=== PATIENT | female | born 1965 | race Hispanic/Latino ===

== ENCOUNTER 2018-09-11 09:06 | Emergency (ER) | payer OTHER ==
[2018-09-11] MEDS ORDERED: HYDROCODONE/APAP 7.5/325 MG TAB ONE (10:40)
--- NOTE | 2018-09-11 11:11 | ER ---
Nurse's Notes [facility] Name: Merary Richards Age: 52 yrs Sex: Female : 1965 Arrival Date: 09/11/2018 Time: 09:10 Bed 16 Private MD: Diagnosis: Pain in right shoulder Presentation: 09/11 09:24 Presenting complaint: Patient states: R shoulder pain that began yesterday. No known ss injury. ROM to affected arm is limited. Transition of care: patient was not received from another setting of care. Onset of symptoms was September 10, 2018. Risk Assessment: Do you want to hurt yourself or someone else? Patient reports no desire to harm self or others. Initial Sepsis Screen: Does the patient meet any 2 criteria? No. Patient's initial sepsis screen is negative. Does the patient have a suspected source of infection? No. Patient's initial sepsis screen is negative. Care prior to arrival: None. 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 - Social history:: Smoking status: Patient/guardian denies using tobacco. - Ebola Screening: : Patient denies exposure to infectious person Patient denies travel to an Ebola-affected area in the 21 days before illness onset. Screenin:12 Abuse screen: Denies threats or abuse. Nutritional screening: No deficits noted. rb1 Tuberculosis screening: No symptoms or risk factors identified. Fall Risk None identified. Assessment: 10:12 General: Appears uncomfortable, Behavior is calm, cooperative. Pain: Complains of pain rb1 in right shoulder Pain currently is 10 out of 10 on a pain scale. Pain began 1 day ago. Neuro: Level of Consciousness is awake, alert, obeys commands, Oriented to person, place, time, situation. Cardiovascular: Capillary refill < 3 seconds is brisk in bilateral fingers. Respiratory: Airway is patent Respiratory effort is even, unlabored, Respiratory pattern is regular, symmetrical. GI: No signs and/or symptoms were reported involving the gastrointestinal system. : No signs and/or symptoms were reported regarding the genitourinary system. Derm: Skin is dry, Skin is normal, Skin temperature is warm. Musculoskeletal: Range of motion: limited in right shoulder Reports pain in right shoulder. Injury Description: Pt. was lifting a heavy tray yesterday and lost control of it and it pulled the muscle in her right shoulder. 11:12 Reassessment: Patient appears in no apparent distress at this time. Patient and/or rb1 family updated on plan of care and expected duration. Pain level reassessed. Patient is alert, oriented x 3, equal unlabored respirations, skin warm/dry/pink. pain 8/10. Vital Signs: 09:26 BP 133 / 75; Pulse 70; Resp 15; Temp 97.8(TE); Pulse Ox 99% on R/A; Weight 85.28 kg; ss Height 5 ft. 2 in. (157.48 cm); Pain 10; 09:26 Body Mass Index 34.39 (85.28 kg, 157.48 cm) ED Course: 09:10 Patient arrived in ED. as 09:25 Triage completed. ss 09:26 Arm band placed on left wrist. ss 10:04 Shoulder Right (2 View) XRAY In Process Unspecified. EDMS 10:12 Patient has correct armband on for positive identification. Bed in low position. Call rb1 light in reach. Side rails up X 1. Pulse ox on. NIBP on. 10:13 June Ravi FNP-C is PHCP. kb 10:13 Kyle Allen MD is Attending Physician. kb 10:20 Danni Loo, RUTH is Primary Nurse. rb1 11:36 No provider procedures requiring assistance completed. Patient did not have IV access rb1 during this emergency room visit. Administered Medications: 10:32 Drug: Heaters (7.5 mg-325 mg) 1 tabs Route: PO; rb1 11:03 Follow up: Response: No adverse reaction; Pain is decreased rb1 Outcome: 11:10 Discharge ordered by . kb 11:36 Patient left the ED. rb1 11:36 Discharged to home ambulatory, with significant other. rb1 11:36 Condition: stable 11:36 Discharge instructions given to patient, Instructed on discharge instructions, follow up and referral plans. medication usage, Demonstrated understanding of instructions, follow-up care, medications, Prescriptions given X 2. Signatures: Dispatcher [employer] EDJune Allen, S[employer]A'[employer] HELPER-C S[employer] HELPER-Delores Mcmullen Shelby, RN RN ss Danni Loo RN RN rb1 Corrections: (The following items were deleted from the chart) 11:50 11:45 Patient left the ED. rb1 rb1
--- NOTE | 2018-09-11 11:11 | EDPHYS ---
Physician Documentation [facility] Name: Merary Richards Age: 52 yrs Sex: Female : 1965 Arrival Date: 09/11/2018 Time: 09:10 Bed 16 Private MD: ED Physician Kyle Allen HPI: 09/11 11:03 This 52 yrs old Female presents to ER via Ambulatory with complaints of kb Shoulder Pain. 11:03 The patient or guardian complains of decreased range of motion, pain, that is acute. kb right shoulder. Context: The problem was sustained at work, resulted from lifting heavy tray and it falling, The patient reports no decreased range of motion. The patient reports no obvious deformity. Onset: The symptoms/episode began/occurred yesterday. Modifying factors: the symptoms are alleviated by nothing. The symptoms are aggravated by movement. Associated signs and symptoms: The patient has no apparent associated signs or symptoms. Severity of symptoms: At their worst the symptoms were moderate, in the emergency department the symptoms are unchanged. Treatment prior to arrival includes: no previous treatment. The patient has not experienced similar symptoms in the past. The patient has not recently seen a physician. Pt reports right shoulder pain after lifting a tray at work yesterday. states the tray lost balance and fell causing her shoulder to twist. . 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 - Social history:: Smoking status: Patient/guardian denies using tobacco. - Ebola Screening: : Patient denies exposure to infectious person Patient denies travel to an Ebola-affected area in the 21 days before illness onset. ROS: 11:03 Constitutional: Negative for fever, chills, and weight loss, Cardiovascular: Negative kb for chest pain, palpitations, and edema, Respiratory: Negative for shortness of breath, cough, wheezing, and pleuritic chest pain, Abdomen/GI: Negative for abdominal pain, nausea, vomiting, diarrhea, and constipation, Back: Negative for injury and pain, Skin: Negative for injury, rash, and discoloration, Neuro: Negative for headache, weakness, numbness, tingling, and seizure. 11:03 MS/extremity: Positive for decreased range of motion, pain, tenderness, of the right shoulder. Exam: 11:03 Constitutional: This is a well developed, well nourished patient who is awake, alert, kb and in no acute distress. Head/Face: Normocephalic, atraumatic. Chest/axilla: Normal chest wall appearance and motion. Nontender with no deformity. No lesions are appreciated. Cardiovascular: Regular rate and rhythm with a normal S1 and S2. No gallops, murmurs, or rubs. Normal PMI, no JVD. No pulse deficits. Respiratory: Lungs have equal breath sounds bilaterally, clear to auscultation and percussion. No rales, rhonchi or wheezes noted. No increased work of breathing, no retractions or nasal flaring. Abdomen/GI: Soft, non-tender, with normal bowel sounds. No distension or tympany. No guarding or rebound. No evidence of tenderness throughout. Skin: Warm, dry with normal turgor. Normal color with no rashes, no lesions, and no evidence of cellulitis. Neuro: Awake and alert, GCS 15, oriented to person, place, time, and situation. Cranial nerves II-XII grossly intact. Motor strength 5/5 in all extremities. Sensory grossly intact. Cerebellar exam normal. Normal gait. 11:03 Musculoskeletal/extremity: Extremities: grossly normal except: noted in the right shoulder: pain, tenderness, ROM: limited active range of motion due to pain, in the right shoulder, Circulation is intact in all extremities. Sensation intact. Vital Signs: 09:26 BP 133 / 75; Pulse 70; Resp 15; Temp 97.8(TE); Pulse Ox 99% on R/A; Weight 85.28 kg; ss Height 5 ft. 2 in. (157.48 cm); Pain 06/09; 09:26 Body Mass Index 34.39 (85.28 kg, 157.48 cm) ss MDM: 10:14 Patient medically screened. kb 11:03 Data reviewed: vital signs, nurses notes. Data interpreted: Pulse oximetry: on room air kb is 99 %. Interpretation: normal. Counseling: I had a detailed discussion with the patient and/or guardian regarding: the historical points, exam findings, and any diagnostic results supporting the discharge/admit diagnosis, radiology results, the need for outpatient follow up, a orthopedic surgeon, to return to the emergency department if symptoms worsen or persist or if there are any questions or concerns that arise at home. 09/11 09:50 Order name: Shoulder Right (2 View) XRAY; Complete Time: 11:26 kb 09/11 11:09 Order name: Sling; Complete Time: 11:18 kb Administered Medications: 10:32 Drug: Advance (7.5 mg-325 mg) 1 tabs Route: PO; rb1 11:03 Follow up: Response: No adverse reaction; Pain is decreased rb1 Disposition: 17:27 Co-signature as Attending Physician, Kyle Allen MD. Disposition: 09/11/18 11:10 Discharged to Home. Impression: Pain in right shoulder. - Condition is Stable. - Discharge Instructions: Shoulder Pain, [id number]. - Prescriptions for Cyclobenzaprine 10 mg Oral Tablet - take 1 tablet by ORAL route every 8 hours As needed; 21 tablet. Diclofenac Sodium 75 mg Oral Tablet, Delayed Release (E.C.) - take 1 tablet by ORAL route 2 times per day As needed; 30 tablet. - Medication Reconciliation Form, Thank You Letter, Antibiotic Education, Prescription Opioid Use form. - Follow up: Emergency Department; When: As needed; Reason: Worsening of condition. Follow up: Private Physician; When: 2 - 3 days; Reason: Recheck today's complaints, Continuance of care, Re-evaluation by your physician. Signatures: Dispatcher [employer] June Travis, TAQUERIA-C [employer]-Mago Murguia RN RN Danni Loo RN RN rb1 Kyle Allen MD MD Corrections: (The following items were deleted from the chart) 11:45 11:10 09/11/2018 11:10 Discharged to Home. Impression: Pain in right shoulder. rb1 Condition is Stable. Forms are Medication Reconciliation Form, Thank You Letter, Antibiotic Education, Prescription Opioid Use. Follow up: Emergency Department; When: As needed; Reason: Worsening of condition. Follow up: Private Physician; When: 2 - 3 days; Reason: Recheck today's complaints, Continuance of care, Re-evaluation by your physician. kb
--- NOTE | 2018-09-11 11:23 | RAD REPORT ---
EXAM DESCRIPTION: Shoulder Right 2 View - 09/11/2018 10:07 am CLINICAL HISTORY: Shoulder pain, decreased range of motion COMPARISON: None. TECHNIQUE: Internal and external rotation views of the right shoulder were obtained. FINDINGS: There is no fracture or dislocation. Minimal degenerative change seen along the undersurf yanelis of the clavicle at the AC joint. Acromial humeral joint space is normal range. On external rotati on view there is a small curvilinear calcification lateral aspect of the humeral head. This is probab ly along the outside or lateral margin of the joint capsule. Calcification of the tendon is doubtful. IMPRESSION: Right shoulder showing mild degenerative change as detailed. No acute finding. Concerns for rotator cuff tear, internal derangement or occult bone process can be addressed with MR imaging.
== END 2018-09-11 11:45 | disposition home or self-care (01) ==
LOC: ER 09:06
DX: M25.511 Pain in right shoulder (principal)
CPT/HCPCS: 99284